=== PATIENT | female | born 1975 | race Caucasian/White ===

== ENCOUNTER → 2024-08-23 | Outpatient (CLI) | payer BC, SELFPAY ==
[2024-08-23 11:03] LABS: AST(SGOT) 22 U/L (15-37); Alanine Aminotransfer ALT/SGPT 29 U/L (13-56); Albumin, Serum 3.7 g/dL (3.2-5.0); Alkaline Phosphatase 58 U/L (45-117); Bilirubin, Direct 0.19 mg/dL (0.00-0.30); Globulin 3.6 g/dL (2.2-4.2); Protein, Total 7.3 g/dL (6.4-8.2)
[2024-08-26 06:08] LABS: QNTFERON TB Mitogen Value > 10.00 IU/mL (.); QNTFERON TB Nil Value 0.04 IU/mL (.); QNTFERON TB1+ Ag Value 0.04 IU/mL (.); QNTFERON TB2+ Ag Value 0.05 IU/mL (.); QNTIFERON TB Positive Criteria Negative (Negative)
== END | disposition home or self-care (01) ==
PROVIDERS: Referring Provider Dermatology Pediatric Dermatology; Visit Provider Dermatology Pediatric Dermatology
DX: L20.89 Other atopic dermatitis (principal)
CPT/HCPCS: 36415; 80076; 86480

== ENCOUNTER → 2025-06-24 | Outpatient (CLI) | payer BC, SELFPAY ==
[2025-06-24 19:00] LABS: Hematocrit 40.7 % (37-47); Hemoglobin 13.7 g/dL (12.0-15.0); Immature Granulocytes Count 0.020 X10^3/uL (0.0-0.0); Mean Corp Hgb Conc 33.7 g/dL (32-36); Mean Corpuscular Volume 92.1 fL (81-99); Mean Platelet Vol. 11.0 fl (6.2-12.0); NRBC Flagged by Analyzer 0 % (0-5); Platelet Count 309 K/mm3 (150-450); RBC Distribution Width CV 13.0 % (11.6-14.6); RBC Distribution Width SD 44.0 fl (35.1-43.9); Red Blood Count 4.42 M/mm3 (4.2-5.4); White Blood Count 6.8 K/mm3 (4.4-11.0)
[2025-06-29 01:06] LABS: Red Blood Cell Count Test/G6PD 4.48 x10E6/uL (3.77-5.28)
== END | disposition home or self-care (01) ==
LOC: MTLAB 17:06
PROVIDERS: Referring Provider Dermatology Pediatric Dermatology; Visit Provider Dermatology Pediatric Dermatology
DX: L30.8 Other specified dermatitis (principal)
CPT/HCPCS: 36415; 82955; 85025